=== PATIENT | male | born 1950 | race Caucasian/White ===

== ENCOUNTER 2019-05-11 11:29 | Emergency (ER) | payer MEDICARE, OTHER ==
[~2019-05-11] VITALS: Ht 170.2 cm; Wt 105.0 kg
[2019-05-11 11:40] VITALS: BP 125/75
[2019-05-11] MEDS ORDERED: KETOROLAC 30 MG/1 ML IM ONE (12:30)
[2019-05-11] MEDS ORDERED: DIAZEPAM 5 MG TABLET PO ONE (12:30)
[2019-05-11] MEDS ORDERED: DIAZEPAM 5 MG TABLET ONE (12:53)
[2019-05-11] MEDS ORDERED: KETOROLAC 30 MG/1 ML ONE (12:54)
--- NOTE | 2019-05-11 13:27 | NUR ---
PT. WAS MEDICATED FOR PAIN ORDERED. PT. STATES HE "DOESN'T KNOW IF HE HAD RELIEF FROM THE PAIN MEDICATIONS". PT. IS RESTING COMFORTABLY ON THE GURNEY WITH STABLE VITALS. PT. WAS GIVEN DISCHARGE INSTRUCTIONS AND SCRIPTS WITH UNDERSTANDING VERBALIZED ALONG WITH WILLINGNESS TO COMPLY.
--- NOTE | 2019-05-11 13:30 | NUR ---
PT. WAS AMBULATORY WITH A STEADY GAIT TO DISCHARGE.
== END 2019-05-11 13:33 | disposition home or self-care (01) ==
LOC: ED 12:16
DX: S39.012A Strain of muscle, fascia and tendon of lower back, initial encounter (principal); M51.36 Other intervertebral disc degeneration, lumbar region; J44.9 Chronic obstructive pulmonary disease, unspecified; E78.00 Pure hypercholesterolemia, unspecified; Z95.1 Presence of aortocoronary bypass graft; V43.51XA Car driver injured in collision with sport utility vehicle in traffic accident, initial encounter; Y93.89 Activity, other specified; Y92.89 Other specified places as the place of occurrence of the external cause; Y99.8 Other external cause status
CPT/HCPCS: 72110; 96372; 99283; J1885

== ENCOUNTER 2019-06-08 10:13 | Emergency (ER) | payer OTHER ==
[~2019-06-08] VITALS: Ht 170.2 cm; Wt 103.0 kg
[2019-06-08 10:35] VITALS: BP 147/83
== END 2019-06-08 11:06 | disposition home or self-care (01) ==
LOC: ED 11:00
DX: G89.11 Acute pain due to trauma (principal); M51.16 Intervertebral disc disorders with radiculopathy, lumbar region; E78.00 Pure hypercholesterolemia, unspecified; J44.9 Chronic obstructive pulmonary disease, unspecified; Z95.1 Presence of aortocoronary bypass graft; V89.2XXA Person injured in unspecified motor-vehicle accident, traffic, initial encounter; Y93.89 Activity, other specified; Y92.89 Other specified places as the place of occurrence of the external cause; Y99.8 Other external cause status
CPT/HCPCS: 99281